=== PATIENT | female | born 1955 | race Caucasian/White ===

== ENCOUNTER → 2021-12-01 | Day surgery (SDC) | payer MEDICARE ==
[2021-11-29 14:54] LABS: BASOPHILS # (AUTO) 0.1 (0.0-0.1); BASOPHILS % 1.1 % (0.0-1.0); EOSINOPHILS # (AUTO) 0.1 (0.0-0.4); EOSINOPHILS % 1.3 % (0.0-6.0); HEMATOCRIT 38.9 % (34.2-44.1); HEMOGLOBIN 12.3 g/dL (12.0-16.0); LYMPHOCYTES # (AUTO) 3.3 (1.0-3.2); LYMPHOCYTES % 35.9 % (18.0-39.1); MEAN CORPUSCULAR HEMOGLOBIN 30.1 pg (28-32); MEAN CORPUSCULAR HGB CONC 31.6 g/dL (31-35); MEAN CORPUSCULAR VOLUME 95.1 fL (81-99); MONOCYTES # (AUTO) 0.6 (0.2-0.8); MONOCYTES % 6.3 % (4.4-11.3); NEUTROPHILS % 55.2 % (38.7-80.0); PLATELET COUNT 397 x10e3/uL (140-360); RED BLOOD COUNT 4.09 x10e6/uL (3.6-5.1); RED CELL DISTRIBUTION WIDTH 13.4 % (11.7-14.4)
[2021-11-29 15:03] LABS: INR 1.11; PROTHROMBIN TIME 15.3 seconds (11.9-14.5)
[2021-11-29 15:11] LABS: ALANINE AMINOTRANSFERASE 20 IU/L (0-55); ALBUMIN 3.8 g/dL (3.5-5.0); ALBUMIN/GLOBULIN RATIO 1.1 (0.8-2.0); ALKALINE PHOSPHATASE 62 IU/L (40-150); BLOOD UREA NITROGEN 24 mg/dL (7-26); BUN/CREATININE RATIO 20 (6-25); CARBON DIOXIDE 25 mmol/L (22-29); CHLORIDE 101 mmol/L (98-107); CREATININE, SERUM 1.23 mg/dL (0.57-1.11); GLUCOSE 157 mg/dL (74-118); SODIUM 140 mmol/L (136-145)
[~2021-12-01] VITALS: Ht 162.6 cm; Wt 99.8 kg
[~2021-12-01] MED LIST: BENZOCAINE 20% SPR 60 ML CAN ONE; ELIQUIS5 MG PO; FLUOXETINE HCL20 MG PO; GLIMEPIRIDE4 MG PEG; HYDROCHLOROTHIA25 MG PO; LEVOTHYROXINE100 MC2 PO; LOSARTAN POTAS100 MG PO; METFORMIN HCL500 MG PO; METOPROLOL TART50 MG PO; PERFLUTREN LIPID MICROSPHERES 2 ML VIAL IV ONE; POVIDONE IODINE 0.05% 0.05 % ML PO ONE; PRAVASTATIN SOD80 MG PO; PROPOFOL IV EMULSION 10 MG/ML 20 ML VIAL ONE; SODIUM CHLORIDE 0.9% 1000ML 1,000 ML ONE; TRULICITY0.75 MG/0. SQ
[2021-12-01 09:54] VITALS: BP 128/72
[2021-12-01 12:05] VITALS: BP 89/59
[2021-12-01 12:15] VITALS: BP 97/63
[2021-12-01 12:30] VITALS: BP 92/56
[2021-12-01 12:45] VITALS: BP 102/67
[2021-12-01 13:00] VITALS: BP 94/50
== END | disposition home or self-care (01) ==
LOC: CATH LAB 09:13 → EDBD 11:00
PROVIDERS: ATTEND Internal Medicine
DX: I48.91 Unspecified atrial fibrillation (principal); I34.0 Nonrheumatic mitral (valve) insufficiency; I07.1 Rheumatic tricuspid insufficiency; E11.22 Type 2 diabetes mellitus with diabetic chronic kidney disease; I12.9 Hypertensive chronic kidney disease with stage 1 through stage 4 chronic kidney disease, or unspecified chronic kidney disease; N18.9 Chronic kidney disease, unspecified; E78.5 Hyperlipidemia, unspecified; E07.9 Disorder of thyroid, unspecified; Z71.82 Exercise counseling; Z71.3 Dietary counseling and surveillance; Z01.812 Encounter for preprocedural laboratory examination; Z20.822 Contact with and (suspected) exposure to COVID-19; Z79.02 Long term (current) use of antithrombotics/antiplatelets; Z79.84 Long term (current) use of oral hypoglycemic drugs; Z79.899 Other long term (current) drug therapy; Z68.37 Body mass index [BMI] 37.0-37.9, adult; Z82.49 Family history of ischemic heart disease and other diseases of the circulatory system; Z82.3 Family history of stroke
CPT/HCPCS: 92960; C8925; 0223U; 36415; 80053; 82948; 85025; 85610; 93005; 93307; 93312; 93320; 93325; J7030

== ENCOUNTER 2022-02-23 17:01 | Inpatient (IN) | payer MEDICARE ==
[~2022-02-23] VITALS: Ht 162.6 cm; Wt 111.4 kg
[~2022-02-23 17:01] MED LIST changes: -BENZOCAINE 20% SPR 60 ML CAN ONE; -PERFLUTREN LIPID MICROSPHERES 2 ML VIAL IV ONE; -POVIDONE IODINE 0.05% 0.05 % ML PO ONE; -PROPOFOL IV EMULSION 10 MG/ML 20 ML VIAL ONE; -SODIUM CHLORIDE 0.9% 1000ML 1,000 ML ONE
[2022-02-23 17:31] LABS: BASOPHILS # (AUTO) 0.1 (0.0-0.1); BASOPHILS % 0.8 % (0.0-1.0); EOSINOPHILS # (AUTO) 0.2 (0.0-0.4); EOSINOPHILS % 1.7 % (0.0-6.0); HEMATOCRIT 33.7 % (34.2-44.1); HEMOGLOBIN 10.6 g/dL (12.0-16.0); LYMPHOCYTES # (AUTO) 3.2 (1.0-3.2); MEAN CORPUSCULAR HEMOGLOBIN 30.1 pg (28-32); MEAN CORPUSCULAR HGB CONC 31.5 g/dL (31-35); MEAN CORPUSCULAR VOLUME 95.7 fL (81-99); MONOCYTES # (AUTO) 0.6 (0.2-0.8); MONOCYTES % 5.6 % (4.4-11.3); NEUTROPHILS # (AUTO) 6.5 (2.1-6.9); NEUTROPHILS % 61.4 % (38.7-80.0); PLATELET COUNT 369 x10e3/uL (140-360); RED BLOOD COUNT 3.52 x10e6/uL (3.6-5.1); RED CELL DISTRIBUTION WIDTH 14.6 % (11.7-14.4)
[2022-02-23 17:43] LABS: ALBUMIN 3.5 g/dL (3.5-5.0); ALBUMIN/GLOBULIN RATIO 1.1 (0.8-2.0); ANION GAP 17.1 mmol/L (8-16); CALCIUM 9.5 mg/dL (8.4-10.2); CREATININE, SERUM 1.04 mg/dL (0.57-1.11); POTASSIUM 4.1 mmol/L (3.5-5.1)
[2022-02-23 17:49] LABS: CREATINE KINASE MB 1.8 ng/mL (0-5.0)
[2022-02-23] MEDS ORDERED: DEXTROSE 50% SYRINGE 50 ML IV PRN (20:00)
[2022-02-23] MEDS ORDERED: Morphine 4mg INJECTION 4 MG/ML INJ IV PRN (20:00)
[2022-02-23] MEDS: INSULIN REGULAR, HUMAN 100 UNIT/1 ML SQ SCH (21:00)
[2022-02-23 21:15] VITALS: BP 126/67
[2022-02-23 22:00] VITALS: BP 105/74
[2022-02-23 22:03] VITALS: BP 105/74
[2022-02-23 23:00] VITALS: BP 126/66
[2022-02-24] VITALS (25 sets, daily range): BP systolic 105–144; BP diastolic 57–74
[2022-02-24 01:38] LABS: CREATINE KINASE MB 1.5 ng/mL (0-5.0)
[2022-02-24 04:49] LABS: BASOPHILS # (AUTO) 0.1 (0.0-0.1); BASOPHILS % 0.9 % (0.0-1.0); EOSINOPHILS # (AUTO) 0.2 (0.0-0.4); EOSINOPHILS % 2.2 % (0.0-6.0); HEMATOCRIT 33.9 % (34.2-44.1); HEMOGLOBIN 10.9 g/dL (12.0-16.0); LYMPHOCYTES # (AUTO) 3.9 (1.0-3.2); LYMPHOCYTES % 43.6 % (18.0-39.1); MEAN CORPUSCULAR HEMOGLOBIN 29.9 pg (28-32); MEAN CORPUSCULAR HGB CONC 32.2 g/dL (31-35); MEAN CORPUSCULAR VOLUME 93.1 fL (81-99); MONOCYTES # (AUTO) 0.6 (0.2-0.8); MONOCYTES % 7.1 % (4.4-11.3); NEUTROPHILS # (AUTO) 4.1 (2.1-6.9); NEUTROPHILS % 45.8 % (38.7-80.0); PLATELET COUNT 290 x10e3/uL (140-360); RED BLOOD COUNT 3.64 x10e6/uL (3.6-5.1); RED CELL DISTRIBUTION WIDTH 14.4 % (11.7-14.4)
[2022-02-24 05:13] LABS: ALBUMIN 3.2 g/dL (3.5-5.0); CALCIUM 9.3 mg/dL (8.4-10.2); CREATININE, SERUM 0.84 mg/dL (0.57-1.11)
[2022-02-24] MEDS: INSULIN REGULAR, HUMAN 100 UNIT/1 ML SQ SCH ×4 (07:20→21:00)
[2022-02-24] MEDS ORDERED: LOSARTAN POTASSIUM 100 MG TAB PO SCH (09:00)
[2022-02-24] MEDS ORDERED: METOPROLOL TARTRATE 25 MG TAB PO SCH (09:00)
[2022-02-24] MEDS ORDERED: ACETAMINOPHEN 325 MG TAB PO PRN (09:45)
[2022-02-24] MEDS ORDERED: ONDANSETRON HCL INJ 2MG/ML 2ML 2 MG/ML VIAL IV PRN (09:45)
[2022-02-24 10:17] LABS: CREATINE KINASE MB 1.4 ng/mL (0-5.0)
[2022-02-24] MEDS ORDERED: LEVOTHYROXINE SODIUM 100 MCG TAB PO SCH (11:00)
[2022-02-24 11:15] LABS: CHOL/HDL RATIO 2.6 (3.0-3.6)
[2022-02-24 11:35] LABS: THYROID STIMULATING HORMONE 9.82 uIU/mL (0.350-4.940)
[2022-02-24] MEDS: NAPROXEN 250 MG TAB PO SCH ×2 (12:12→21:16)
[2022-02-24] MEDS ORDERED: IOPAMIDOL 370 MG/ML 100 ML INFUS..BTL INJ ONE (13:37)
[2022-02-24] MEDS: APIXABAN 5 MG TABLET PO SCH ×2 (17:08→22:19)
[2022-02-24] MEDS ORDERED: PRAVASTATIN 20 MG TAB PO SCH (21:00)
[2022-02-24] MEDS: SIMVASTATIN 40 MG TAB PO SCH (21:16)
[2022-02-25] VITALS (19 sets, daily range): BP systolic 104–144; BP diastolic 51–73
[2022-02-25] MEDS: LEVOTHYROXINE SODIUM 75 MCG TAB PO SCH (05:36)
[2022-02-25] MEDS: INSULIN REGULAR, HUMAN 100 UNIT/1 ML SQ SCH ×4 (07:30→21:00)
[2022-02-25] MEDS ORDERED: NAPROXEN 250 MG TAB PO PRN (08:08)
[2022-02-25] MEDS: APIXABAN 5 MG TABLET PO SCH ×2 (08:27→16:49)
[2022-02-25] MEDS: SIMVASTATIN 40 MG TAB PO SCH (21:08)
[2022-02-26] VITALS (7 sets, daily range): BP systolic 121–168; BP diastolic 62–78
[2022-02-26] MEDS: LEVOTHYROXINE SODIUM 75 MCG TAB PO SCH (06:18)
[2022-02-26] MEDS: INSULIN REGULAR, HUMAN 100 UNIT/1 ML SQ SCH ×2 (07:30→11:30)
[2022-02-26 08:05] LABS: BASOPHILS # (AUTO) 0.1 (0.0-0.1); BASOPHILS % 1.1 % (0.0-1.0); EOSINOPHILS # (AUTO) 0.3 (0.0-0.4); EOSINOPHILS % 4.9 % (0.0-6.0); HEMATOCRIT 36.9 % (34.2-44.1); HEMOGLOBIN 11.3 g/dL (12.0-16.0); LYMPHOCYTES # (AUTO) 1.8 (1.0-3.2); MEAN CORPUSCULAR HEMOGLOBIN 30.1 pg (28-32); MEAN CORPUSCULAR HGB CONC 30.6 g/dL (31-35); MEAN CORPUSCULAR VOLUME 98.1 fL (81-99); MONOCYTES # (AUTO) 0.6 (0.2-0.8); MONOCYTES % 8.8 % (4.4-11.3); NEUTROPHILS # (AUTO) 3.6 (2.1-6.9); NEUTROPHILS % 56.7 % (38.7-80.0); PLATELET COUNT 304 x10e3/uL (140-360); RED BLOOD COUNT 3.76 x10e6/uL (3.6-5.1); RED CELL DISTRIBUTION WIDTH 14.7 % (11.7-14.4)
[2022-02-26 08:23] LABS: ANION GAP 14.6 mmol/L (8-16); CALCIUM 9.2 mg/dL (8.4-10.2); CREATININE, SERUM 0.81 mg/dL (0.57-1.11); POTASSIUM 4.6 mmol/L (3.5-5.1)
[2022-02-26] MEDS: APIXABAN 5 MG TABLET PO SCH (08:27)
[2022-02-26] MEDS ORDERED: LEVOTHYROXINE100 MC2 PO ×2 (14:19→14:49)
[2022-02-26] MEDS ORDERED: ELIQUIS5 MG PO (14:19)
== END 2022-02-26 15:29 | disposition home or self-care (01) | DRG 176 ==
LOC: ER 17:19 → ERHOLD 19:55 → ICU 21:06
PROVIDERS: ADMIT Internal Medicine; ATTEND Internal Medicine
DX: I26.99 Other pulmonary embolism without acute cor pulmonale (principal); I31.9 Disease of pericardium, unspecified; I48.19 Other persistent atrial fibrillation; Z79.01 Long term (current) use of anticoagulants; R00.1 Bradycardia, unspecified; E03.9 Hypothyroidism, unspecified; E11.9 Type 2 diabetes mellitus without complications; Z20.822 Contact with and (suspected) exposure to COVID-19; K29.70 Gastritis, unspecified, without bleeding
CPT/HCPCS: 36415; 70450; 71045; 71260; 76705; 80048; 80053; 80061; 82550; 82553; 82948; 83690; 84443; 84484; 85025; 85379; 93005; 93306; 94799; 99284; Q9967